=== PATIENT | female | born 1980 | race African-American/Black ===

== ENCOUNTER 2017-03-15 23:09 | Emergency (ER) | payer MEDICAID ==
--- NOTE | 2017-03-16 04:13 | ER Document Report ---
ED General - General Chief Complaint: Numbness of Face Stated Complaint: NUMBNESS OF LEFT SIDE,FACE,ARM,LEG Notes: Patient is a 36-year-old female presents with complaint of intermittent numbness for several days to her left side. She says on her left face, left arm , left leg. Last refill hours numbness become more constant especially in the left arm. No weakness in her extremities. She says her left arm does feel a bit heavier due to the numbness. She says it feels as if it is swollen. No recent fevers or infections. No recent trauma to her head. She says she does have some stress but does not think this is related to the numbness. No recent cold-like symptoms. No recent trauma or injuries. Patient does have a history of hypertension. She is supposed to be on Lisinopril but does not take it because it makes her feel fatigued. TRAVEL OUTSIDE OF THE [place] IN LAST 30 DAYS: No - Related Data Allergies/Adverse Reactions: No Known Allergies Allergy (Verified 03/25/16 22:55) Past Medical History - Social History Smoking Status: Never Smoker Frequency of alcohol use: None Drug Abuse: None Family History: Reviewed & Not Pertinent Patient has suicidal ideation: No Patient has homicidal ideation: No Neurological Medical History: Reports: Hx Migraine. Denies: Hx Cerebrovascular Accident, Hx Seizures Renal/ Medical History: Denies: Hx Peritoneal Dialysis GI Medical History: Reports: Hx Gastroesophageal Reflux Disease. Denies: Hx Hiatal Hernia, Hx Ulcer Infectious Medical History: Denies: Hx HIV Past Surgical History: Reports: Hx Section - x 2 - Immunizations Hx Diphtheria, Pertussis, Tetanus Vaccination: Yes Review of Systems - Review of Systems Notes: My Normal Review Basic REVIEW OF SYSTEMS: CONSTITUTIONAL : Denies fever, chills, or sweats. Denies recent illness. EENT: Denies eye, ear, throat, or mouth pain or symptoms. Denies nasal or sinus congestion. CARDIOVASCULAR: Denies chest pain. RESPIRATORY: Denies cough, cold, or chest congestion. Denies shortness of breath, difficulty breathing, or wheezing. GASTROINTESTINAL: Denies abdominal pain. Denies nausea, vomiting, or diarrhea. Denies constipation. Last BM: GENITOURINARY: Denies difficulty urinating, painful urination, burning, frequency, or blood in urine. MUSCULOSKELETAL: Denies neck or back pain or joint pain or swelling. SKIN: Denies rash or skin lesions. HEMATOLOGIC : Denies easy bruising or bleeding. NEUROLOGICAL: Denies altered mental status or loss of consciousness. Denies headache. Denies weakness or paralysis or loss of use of either side. Denies problems with gait or speech. Numbness in left-sided extremities and face. PSYCHIATRIC: Some stress. ALL OTHER SYSTEMS REVIEWED AND NEGATIVE. Physical Exam - Vital signs Vitals: Temp Pulse Resp BP Pulse Ox 97.5 F 79 18 156/101 H 100 03/16/17 01:02 03/16/17 01:02 03/16/17 01:02 03/16/17 01:02 03/16/17 01:02 - Notes Notes: General Appearance: Well nourished, alert, cooperative, no acute distress, no obvious discomfort. Well-appearing. Vitals: reviewed, See vital signs table. Head: no swelling or tenderness to the head Eyes: PERRL, EOMI, Conjuctiva clear Mouth: No decreasd moisture Throat: No tonsillar inflammation, No airway obstruction, No lymphadenopathy Neck: Supple, no neck tenderness, No thyromegaly Lungs: No wheezing, No rales, No rhonci, No accessory muscle use, good air exchange bilaterally. Heart: Normal rate, Regular rythm, No murmur, no rub Abdomen: Normal BS, soft, No rigidity, No abdominal tenderness, No guarding, no rebound, no abdominal masses, no organomegaly Extremities: strength 5/5 in all extremities, good pulses in all extremities, no swelling or tenderness in the extremities, no edema. Skin: warm, dry, appropriate color, no rash Neuro: speech clear, oriented x 3, normal affect, responds appropriately to questions. Cranial nerves II through XII are intact. On exam patient does say that she does feel some tingling sensation on her left versus right; however, she can obviously feel me touch her left upper and left lower extremities. She has good strength in all 4 extremities. Normal Romberg. Normal gait. Course - Vital Signs Vital signs: Temp Pulse Resp BP Pulse Ox 97.5 F 79 18 156/101 H 100 03/16/17 01:02 03/16/17 01:02 03/16/17 01:02 03/16/17 01:02 03/16/17 01:02 - Laboratory Result Diagrams: 03/16/17 04:55 03/16/17 04:55 Laboratory results interpreted by me: 03/16/17 05:01 Urine Ketones TRACE H Urine Ascorbic Acid 40 H - EKG Interpretation by Me Additional EKG results interpreted by me: 03/16/17 04:12 EKGs reviewed and interpreted by me. EKG shows normal sinus rhythm with rate of [address] segment elevation or depression. Ischemic T wave inversions. ME interval, QRS duration, QTC of vitals are within normal range. Old EKG for comparison is not available at this time. Discharge - Discharge Clinical Impression: Paresthesia Additional Instructions: Please make an appointment to see the neurologist ( Dr. Morelos or Dr. Tom ), They can help further workup the numbness you have been having. Please start taking the new high blood pressure medication I have prescribed for you. Please follow up with your primary care doctor as soon as possible for reevaluation. please return to the ER if you develop fevers, weakness in your extremities, slurred speech, or drooping of your face. Prescriptions: Hydrochlorothiazide 12.5 mg PO DAILY #20 capsule Referrals: BISMARK LOPEZ MD [Primary Care Provider] - Follow up as needed
[2017-03-16 05:08] LABS: ABSOLUTE EOSINOPHILS # (AUTO) 0.2 10^3/uL (0.0-0.6); ABSOLUTE LYMPHOCYTES (AUTO) 2.3 10^3/uL (0.5-4.7); ABSOLUTE MONOCYTES (AUTO) 0.5 10^3/uL (0.1-1.4); ABSOLUTE NEUT (AUTO) 3.4 10^3/uL (1.7-8.2); BASOPHILS % (AUTO) 0.6 % (0-2); EOSINOPHILS % (AUTO) 3.5 % (0-6); HEMATOCRIT 36.6 % (36.0-47.0); HEMOGLOBIN 12.1 g/dL (12.0-15.5); HGB HCT DIFFERENCE -0.3; LYMPHOCYTES % (AUTO) 35.5 % (13-45); MEAN CORPUSCULAR HEMOGLOBIN 28.7 pg (27.0-33.4); MEAN CORPUSCULAR HGB CONC 33.1 g/dL (32.0-36.0); MEAN CORPUSCULAR VOLUME 87 fl (80-97); MONOCYTES % (AUTO) 7.6 % (3-13); RED BLOOD COUNT 4.23 10^6/uL (3.72-5.28); RED CELL DISTRIBUTION WIDTH 13.6 % (11.5-14.0); SEGMENTED NEUTROPHILS % (AUTO) 52.8 % (42-78); WHITE BLOOD COUNT 6.4 10^3/uL (4.0-10.5)
[2017-03-16 05:24] LABS: APPEARANCE,URINE CLOUDY; BILIRUBIN,URINE NEGATIVE (NEGATIVE); GLUCOSE, URINE NEGATIVE (NEGATIVE); KETONES,URINE TRACE mg/dL (NEGATIVE); LEUKOCYTE ESTERASE,URINE NEGATIVE (NEGATIVE); NITRITE,URINE NEGATIVE (NEGATIVE); PROTEIN,URINE NEGATIVE (NEGATIVE); URINE SPECIFIC GRAVITY 1.032; UROBILINOGEN,URINE NEGATIVE mg/dL (<2.0)
[2017-03-16 05:33] LABS: BLOOD UREA NITROGEN 9 mg/dL (7-20); CALCIUM 9.5 mg/dL (8.4-10.2); CREATININE RESULT 0.77 mg/dL (0.52-1.25); GLUCOSE 104 mg/dL (75-110)
[2017-03-16 05:34] LABS: ALANINE AMINOTRANSFERASE 17 U/L (9-52); ALBUMIN 3.9 g/dL (3.5-5.0); ALKALINE PHOSPHATASE 84 U/L (38-126); ANION GAP 14 (5-19); ASPARTATE AMINO TRANSFERASE 15 U/L (14-36); BILIRUBIN,DIRECT 0.1 mg/dL (0.0-0.4); BILIRUBIN,TOTAL 0.6 mg/dL (0.2-1.3); CARBON DIOXIDE 23 mmol/L (22-30); CHLORIDE 106 mmol/L (98-107); POTASSIUM 4.1 mmol/L (3.6-5.0); SODIUM 142.9 mmol/L (137-145); TOTAL PROTEIN 7.2 g/dL (6.3-8.2)
[2017-03-16] MEDS ORDERED: ASPIRIN 325 MG TABLET PO ONE (06:28)
--- NOTE | 2017-03-16 09:46 | EKG REPORT ---
SEVERITY:- NORMAL ECG - SINUS RHYTHM : Confirmed by: Chilango James 16-Mar-2017 09:44:47
[2017-03-16] MEDS ORDERED: ACETAMINOPHEN 325 MG TABLET PO ONE (14:35)
[2017-03-16 19:13] VITALS: BP 113/74
== END 2017-03-16 19:14 | disposition home or self-care (01) ==
LOC: ER 23:09
DX: R20.2 Paresthesia of skin (principal); I10 Essential (primary) hypertension; Z91.14 Patient's other noncompliance with medication regimen
CPT/HCPCS: 93005; 99285; 36415; 83735; 85025; 80053; 81001; 70551; 70450; 93010; J3490